=== PATIENT | male | born 1990 | race African-American/Black ===

== ENCOUNTER 2021-10-31 19:15 | Emergency (ER) | payer OTHER ==
[~2021-10-31] VITALS: Ht 170.2 cm; Wt 72.6 kg
== END 2021-11-01 00:51 | disposition home or self-care (01) ==
LOC: ER 19:15
DX: R53.1 Weakness (principal); T50.905A Adverse effect of unspecified drugs, medicaments and biological substances, initial encounter; F10.129 Alcohol abuse with intoxication, unspecified; F19.129 Other psychoactive substance abuse with intoxication, unspecified